=== PATIENT | female | born 1955 | race Native Hawaiian/Other Pacific Islander ===

== ENCOUNTER 2021-03-28 14:59 | Emergency (ER) | payer OTHER ==
[~2021-03-28] VITALS: Ht 152.4 cm; Wt 69.9 kg
[2021-03-28 15:00] VITALS: BP 126/70; TEMP 98
[2021-03-28 15:22] LABS: PLATELET COUNT 392 K/uL (152-353)
[2021-03-28 15:32] LABS: POTASSIUM 3.6 mmol/L (3.6-5.2)
[2021-03-29] MEDS ORDERED: LIPITOR10 MG PO (11:55)
[2021-03-29] MEDS ORDERED: CLOPIDOGREL75 MG PO (11:56)
[2021-03-29] MEDS ORDERED: BUSPIRONE15 MG PO (11:56)
[2021-03-29] MEDS ORDERED: DIVALPROEX125 M1 PO (11:57)
[2021-03-29] MEDS ORDERED: DONEPEZIL HYDRO10 MG PO (11:58)
[2021-03-29] MEDS ORDERED: ESCITALOPRAM20 MG PO (11:59)
[2021-03-29] MEDS ORDERED: MIRALAX17 GM PO (12:00)
[2021-03-29] MEDS ORDERED: MEMANTINE HYDRO10 MG PO (12:00)
[2021-03-29] MEDS ORDERED: SENOKOT8.6 MG PO (12:02)
[2021-03-29] MEDS ORDERED: ASPIRIN 8181 MG PO (12:03)
[2021-03-29] MEDS ORDERED: ZOFRAN8 MG PO (12:03)
[2021-03-29] MEDS ORDERED: BISACODYL LAXAT10 MG RE (12:04)
== END 2021-03-28 15:58 | disposition still patient (30) ==
LOC: ED 14:59
PROVIDERS: Hospitalist
DX: R46.89 Other symptoms and signs involving appearance and behavior (principal); F39 Unspecified mood [affective] disorder; F25.8 Other schizoaffective disorders; Z11.52 Encounter for screening for COVID-19; Z04.6 Encounter for general psychiatric examination, requested by authority
CPT/HCPCS: 80053; 85027; 87635; 93005; 99283; U0003